=== PATIENT | female | born 1990 | race Two or more races ===

== ENCOUNTER 2018-09-15 10:16 | Observation (INO) | payer MEDICAID, OTHER ==
[2018-09-15] MEDS ORDERED: PREN-129 OR (11:02)
== END 2018-09-15 11:12 | disposition home or self-care (01) | DRG 566 ==
LOC: LDRP 10:16
PROVIDERS: ADMIT Specialist; ATTEND Specialist
DX: O26.893 Other specified pregnancy related conditions, third trimester (principal); N89.8 Other specified noninflammatory disorders of vagina; R11.0 Nausea; O62.9 Abnormality of forces of labor, unspecified; Z3A.39 39 weeks gestation of pregnancy
CPT/HCPCS: 59025; 81002; G0378